=== PATIENT | male | born 1950 | race Caucasian/White ===

== ENCOUNTER → 2017-07-14 | Outpatient (CLI) | payer OTHER | LOC: CAT 08:23 | DX: I25.10 Atherosclerotic heart disease of native coronary artery without angina pectoris (principal); N20.0 Calculus of kidney ==

== ENCOUNTER → 2018-06-10 | Outpatient (CLI) | payer OTHER ==
--- NOTE | ~2018-06-10 | PFR/MVV ---
[place] [address] PULMONARY FUNCTION MVV/REPORT Name: NICANOR VAN Room #: REG [facility]#: [id number] Admission: 06/10/18 Attend Phys: Stephane Silvestre MD, [facility] Discharge: Date of : 48 Report #: [id number] THIS REPORT FOR: //name// >> SPIROMETRY: (BTPS) Height: in cm Weight: lbs kg Exam Date: PRE-RX POST-RX PRED BEST %PRED BEST %PRED %CHG FVC LITERS . . . . . . FEV1 LITERS . . . . . . FEV1/FVC % . . . . . . DOC17-57% L/Sec . . . . . . PEF L/SEC . . . . . . FEF50/FIF50 UNITLESS . . . . . . MVV L/Min . . . f 1/Min . . . >> LUNG VOLUMES: (BTPS) PRE-RX POST-RX PRED AVG %PRED AVG %PRED %CHG VC Liters . . . . . . TLC Liters . . . . . . RV Liters . . . . . . RV/TLC % . . . . . . FRC PL Liters . . . . . . FRC N2 Liters . . . . . . ERV Liters . . . . . . IC Liters . . . . . . >> DIFFUSION: DLCO ml/Min/mmHg . . . . . . DL Alonso ml/Min/mmHg . . . . . . DLCO/VA ml/Min/mmHg . . . . . . VA Liters . . . . . . COMMENTS: COMMENTS: >> RESISTANCE: [address] [place] [address] PULMONARY FUNCTION MVV/REPORT Name: REHANNICANOR P Room #: REG [facility]#: [id number] Admission: 06/10/18 Attend Phys: Stephane Silvestre MD, [facility] Discharge: Date of : 48 Report #: [id number] PRE-RX PRED AVG %PRED Raw Total cmH20/L/Sec . . . Raw Insp cmH20/L/Sec . . . Raw Exp cmH20/L/Sec . . . Raw cmH20/L/Sec . . . Gaw L/Sec/cmH20 . . . sRaw cmH20 Sec . . . sGaw l/cmH20 Sec . . . Vtq Liters . . . # = OUTSIDE 95% CONFIDENCE INTERVAL CALIBRATION: PRED: 3.00 ACTUAL: EXP 3.01 INSP 3.02 [id number] [facility] [id number] >> INTERPRETATION/IMPRESSION: CC: Iban Silvestre MD [facility] DATE OF SERVICE: 06/17/2018 PULMONARY FUNCTION TEST: Spirometry revealed mild airflow obstruction. There was no significant bronchodilator response. Small airways disease is suggested. Hyperinflation is present. Diffusion capacity is normal. Flow volume loop is consistent with mild airflow obstruction. IMPRESSION: Mild obstructive ventilatory defect. Airtrapping is present suggestive of emphysema and type. <ELECTRONICALLY SIGNED> By: Rob Godfrey MD 06/18/18 1757 Rob Godfrey MD /nt
== END ==
LOC: PUL 08:48
DX: R06.02 Shortness of breath (principal)

== ENCOUNTER → 2020-11-21 | Outpatient (CLI) | payer OTHER ==
[~2020-11-21] MED LIST: ACID REDUCER20 MG PO; ALLER-FEX180 MG PO; ALLER-TEC D 5-1 EACH PO; ALLERCLEAR10 MG PO; COQ-10100 MG PO; DESYREL300 MG PO; FLONASE 0.05%50 MCG NASAL; LIPITOR40 MG PO; LISINOPRIL40 MG PO; MELATONIN5 M1 PO; NEURONTIN 300300 M1 PO; OMEPRAZOLE40 MG PO; RHINOCORT ALL8.43 ML NASAL
== END ==
LOC: SJCVC 13:45
PROVIDERS: ATTEND Internal Medicine
DX: R94.31 Abnormal electrocardiogram [ECG] [EKG] (principal); I45.10 Unspecified right bundle-branch block; I11.9 Hypertensive heart disease without heart failure; I65.23 Occlusion and stenosis of bilateral carotid arteries; E78.5 Hyperlipidemia, unspecified; F32.9 Major depressive disorder, single episode, unspecified; K21.9 Gastro-esophageal reflux disease without esophagitis; E11.40 Type 2 diabetes mellitus with diabetic neuropathy, unspecified; Z87.891 Personal history of nicotine dependence; Z79.899 Other long term (current) drug therapy

== ENCOUNTER → 2020-11-30 | Outpatient (CLI) | payer OTHER | LOC: SJCVCIMAG 10:00 | PROVIDERS: ATTEND Internal Medicine | DX: I65.23 Occlusion and stenosis of bilateral carotid arteries (principal); I08.0 Rheumatic disorders of both mitral and aortic valves; I11.9 Hypertensive heart disease without heart failure; E78.5 Hyperlipidemia, unspecified; Z79.899 Other long term (current) drug therapy; Z87.891 Personal history of nicotine dependence ==

== ENCOUNTER → 2021-06-11 | Outpatient (CLI) | payer OTHER | LOC: SJCVCIMAG 08:59 | PROVIDERS: ATTEND Internal Medicine | DX: I45.2 Bifascicular block (principal); R94.31 Abnormal electrocardiogram [ECG] [EKG]; I65.23 Occlusion and stenosis of bilateral carotid arteries; I10 Essential (primary) hypertension; E78.5 Hyperlipidemia, unspecified; I45.10 Unspecified right bundle-branch block; K21.9 Gastro-esophageal reflux disease without esophagitis; E11.8 Type 2 diabetes mellitus with unspecified complications; Z87.891 Personal history of nicotine dependence; Z79.899 Other long term (current) drug therapy ==